=== PATIENT | male | born 1990 | race Caucasian/White ===

== ENCOUNTER 2016-08-27 15:30 | Emergency (ER) | payer OTHER ==
--- NOTE | 2016-08-27 16:03 | DIRPT ---
CLINICAL DATA: Fell. Left today. Knee pain EXAM: LEFT KNEE - COMPLETE 4+ VIEW COMPARISON: MRI 07/17/2016 FINDINGS: The joint spaces are maintained. Lateral femoral condyle impaction injury noted. No osteochondral lesion. There is a moderate-sized knee joint effusion. Patient has a known complete ACL tear based on prior MRI. IMPRESSION: Femoral condyle impaction injury. Moderate-sized joint effusion. Patient has a known complete ACL tear (on recent MRI). Electronically Signed By: Wanda Cruz M.D. On: 08/27/2016 16:01
[2016-08-27 16:08] VITALS: BP 141/86; PULSE 84; TEMP 98
[2016-08-27 16:10] VITALS: BMI 26.6
[2016-08-27] MEDS ORDERED: OXYCODONE HCL 5 MG TABLET PO ONE (16:17)
--- NOTE | 2016-08-27 16:17 | EDPRACDOC ---
- General Information Chief Complaint: Knee Pain Stated Complaint: LEFT KNEE PAIN Time Seen by Provider: 08/27/16 16:04 Information Source: Patient Mode of Arrival: Car Home Medications: Home Medications Tamsulosin HCl [Flomax] 0.4 mg PO QAM #15 cap 05/27/16 Ketorolac Tromethamine 10 mg PO Q8H PRN #15 tab 08/27/16 Oxycodone Immediate Release [Oxycodone Immediate Release (OxyIR)] 5 mg PO Q6H PRN #20 tab 08/27/16 Promethazine [Phenergan] 25 mg PO Q4-6H PRN #15 tab 08/27/16 Allergies/Adverse Reactions: Allergies Allergy/AdvReac Type Severity Reaction Status Date / Time No Known Allergies Allergy Verified 05/27/16 09:03 - History of Present Illness Onset: TODAY HPI: PT PRESENTS STATING HE ORIGINALLY HURT HIS KNEE SEVERAL MONTHS AGO WHEN HE FELL FROM SEVERAL FLOORS. THEN HE TWISTED IT AND HURT IT AGAIN AND TORN HIS ACL AND MCL. STATES TODAY HE TWISTED IT AGAIN TODAY AND HEARD IT POP SEVERAL TIME. PT IS IN THE GROUP HOME AN IS UNABLE TO WEAR KNEE BRACE WHILE IN GROUP HOME. Knee Problem Location: Left Mechanism: Reports: Twisting, Blunt Trauma Circumstances: Reports: Fall Relevant History: Reports: None Tetanus Up To Date?: No Able to Bear Weight: Limited Pain Severity: Reports: Moderate Associated Signs & Symptoms: Reports: Swelling ED Past Medical History - History Reviewed Yes Nurses notes reviewed and agree except as marked - Patient Medical History Cardiac History: Reports: Hypertension GI/ History: Reports: Kidney Stones Psychological History: Denies: Depression - Social Medical History Smoking Status: Current some day smoker Social History: Reports: Marijuana Use EDM Review of Systems - Review of Systems ROS Negative Except as Marked: Yes All systems reviewed and were negative except as marked - Physical Exam Constitutional: Alert Oriented to: Time, Person, Place Last recorded Vital Signs: Oxygen Pulse Oxygen Saturation O2 Device Oxygen Flow Rate Fraction of Inspired Oxygen ( FIO2) - HEENT Head: Normal ( normocephalic) Eye Exam: Normal (PERRL, EOMI, Sclera white) Oropharynx: Normal (Pharynx:Moist without exudate,Gums-no swelling) Nose: No Symptoms Reported (septum midline) Neck: Normal (FROM, trachea at midline) - Respiratory/Cardiovascular Respiratory: Normal - CTA (BBS clear to auscultation without adventitious sounds ) Cardiovascular: Normal (RRR without murmur, gallop or rub) - GI Auscultation: Normal (NABS) Palpation: Normal (Soft,No rebound or guarding, non distended) Tenderness: Non tender Craft's Sign: Negative Rectal Exam: Deferred - Musculoskeletal Back: Normal (Non-Tender) Extremities: Normal (Normal tone, Pulses 2+ No cyanosis or edema, FROM) - Integumentary Skin: Normal, Warm, Dry Lymphatics: Normal (no adenopathy) - Neurologic Memory Impaired: Normal Motor Function: Normal (Normal tone, Pulses 2+ No cyanosis or edema, FROM) Cranial Nerve: Normal (CN II-X11 intact sensation, strength 5/5) Cerebellar: Normal Mood Description: Normal Perception: Normal ED Knee Problem Phys Exam - Musculoskeletal Knee: Swelling, Joint Effusion, Limited ROM, Moderate Tenderness Knee Ligaments: Moderate Laxity Knee Meniscus: Castro's: Positive Thigh: Normal Lower Leg: Normal Distal Function/Circulation: Normal - Integumentary Skin: Normal Lymphatics: Normal - Differential Diagnosis Other - Diagnostic Imaging Knee Image interpreted by: Radiologist Exam(s): [id number] RAD/DG KNEE COMPLETE 4+V-L CLINICAL DATA: Fell. Left today. Knee pain EXAM: LEFT KNEE - COMPLETE 4+ VIEW COMPARISON: MRI 07/17/2016 FINDINGS: The joint spaces are maintained. Lateral femoral condyle impaction injury noted. No osteochondral lesion. There is a moderate-sized knee joint effusion. Patient has a known complete ACL tear based on prior MRI. IMPRESSION: Femoral condyle impaction injury. Moderate-sized joint effusion. Patient has a known complete ACL tear (on recent MRI). Decision Time to Discharge: 16:24 - Departure Disposition: Home Condition: Stable Final Diagnosis: Femoral condyle fracture Qualifiers: Encounter type: initial encounter Fracture type: closed Fracture alignment: nondisplaced Laterality: left Qualified Code(s): S72.415A - Nondisplaced unspecified condyle fracture of lower end of left femur, initial encounter for closed fracture Instructions: Leg Fracture (ED) Education/Counseling Given To: Patient Education/Counseling Given Regarding: Diagnosis, Treatment, Prognosis, Follow Up Referrals: Lucio Campbell MD [Staff Physician] - One Week Prescriptions: Continue Ketorolac Tromethamine 10 mg PO Q8H PRN #15 tab PRN Reason: Pain Oxycodone Immediate Release [Oxycodone Immediate Release (OxyIR)] 5 mg PO Q6H PRN #20 tab PRN Reason: Pain Promethazine [Phenergan] 25 mg PO Q4-6H PRN #15 tab PRN Reason: Nausea/Vomiting No Action Tamsulosin HCl [Flomax] 0.4 mg PO QAM #15 cap Additional Instructions: ICE AND ELEVATION IS VERY IMPORTANT. MAKE A FOLLOW UP APPOINTMENT WITH ORTHOPEDIC DOCTOR. RETURN TO THE ED FOR WORSENING SYMPTOMS OR CONCERNS.
== END 2016-08-27 17:02 | disposition home or self-care (01) ==
LOC: EEVIPCON 15:30 → ED 15:30 → EDMC 17:02
DX: M25.562 Pain in left knee (principal); S72.415A Nondisplaced unspecified condyle fracture of lower end of left femur, initial encounter for closed fracture; X58.XXXA Exposure to other specified factors, initial encounter; Y93.89 Activity, other specified; Y92.89 Other specified places as the place of occurrence of the external cause
CPT/HCPCS: 73564; 99283; J3490